=== PATIENT | male | born 1960 | race Two or more races ===

== ENCOUNTER 2017-08-09 18:45 | Inpatient (IN) | payer OTHER, MEDICAID ==
[~2017-08-09] VITALS: Ht 180.3 cm; Wt 99.5 kg
[2017-08-09 19:13] LABS: Basophils # (auto) 0.1 uL; Basophils % (auto) 0.4 % (0.0-2.0); Eosinophils # (auto) 0.3 uL; Eosinophils % (auto) 2.9 % (0.0-7.0); Hematocrit 42.8 % (41.0-53.0); Hemoglobin 14.1 g/dL (13.5-17.5); Lymphocytes # (auto) 2.2 uL; Lymphocytes % (auto) 18.5 % (10.0-50.0); Mean Corpuscular Hgb Conc. 32.9 g/dL (32.0-36.0); Mean Corpuscular Volume 91.2 fL (80.0-100.0); Mean Platelet Volume 8.3 fL (6.9-10.8); Monocytes # (auto) 0.9 uL; Monocytes % (auto) 7.8 % (0.0-12.0); Neutrophils # (auto) 8.3 uL; Neutrophils % (auto) 70.4 % (37.0-80.0); Platelet Count (auto) 243 10^3/uL (140-450); Red Cell Distribution Width 12.9 % (11.8-14.3); White Blood Cell 11.7 10^3/uL (4.4-10.8)
[2017-08-09] MEDS ORDERED: ONDANSETRON HCL 4 MG/2 ML VIAL IV ONE (19:15)
[2017-08-09] MEDS ORDERED: MORPHINE SULF INJ 2 MG/ML SYRINGE 1ML IV PRN ×2 (19:15→22:00)
[2017-08-09 19:34] LABS: INR 0.94 (0.9-1.15); Partial Thromboplastin Time 27.5 sec (22.64-33.71); Prothrombin Time 10.2 sec (9.37-12.3)
[2017-08-09 19:39] LABS: Albumin 3.5 g/dL (3.4-5.0); Anion Gap 10 (5-15); Aspartate Aminotransferase 26 U/L (15-37); BUN/Creatinine Ratio 18.4; Blood Urea Nitrogen 21 mg/dL (7-18); Calcium 8.5 mg/dL (8.5-10.1); Carbon Dioxide 22 mmol/L (21-32); Chloride 106 mmol/L (98-107); GFR African American 84 mL/min; GFR Non-African American 69 mL/min; Glucose 164 mg/dL (74-106); Potassium 3.4 mmol/L (3.5-5.1); Sodium 138 mmol/L (136-145)
[2017-08-09 19:44] LABS: Alkaline Phosphatase 97 U/L (45-117); Bilirubin, Total 0.3 mg/dL (0.2-1.0); Total Protein 7.1 g/dL (6.4-8.2)
[2017-08-09 19:46] LABS: B-Type Natriuretic Peptide 11.36 pg/mL (0-100)
[2017-08-09 19:59] LABS: Temperature: 22.2 C (20.0-25.0)
[2017-08-09] MEDS ORDERED: IOHEXOL 350 MG/ML 100ML IJ ONE (21:27)
[2017-08-09] MEDS ORDERED: HYDROcodone-ACET 5/325MG TAB PO PRN (22:00)
[2017-08-09] MEDS ORDERED: ACETAMINOPHEN 325 MG TAB PO PRN (22:00)
[2017-08-09] MEDS ORDERED: DEXTROSE (50%) 50ML SYRG IV PRN (22:00)
[2017-08-09] MEDS ORDERED: TEMAZEPAM 15 MG CAP PO PRN (22:00)
[2017-08-09] MEDS ORDERED: ONDANSETRON HCL 4 MG/2 ML VIAL IV PRN (22:00)
[2017-08-09] MEDS ORDERED: NITROGLYCERIN 0.4 MG SL TAB SL PRN (22:00)
[2017-08-09] MEDS: METOPROLOL TARTRATE 25 MG TAB PO SCH (22:30)
[2017-08-09] MEDS: FAMOTIDINE 20 MG TAB PO SCH (22:30)
[2017-08-10] MEDS: ACCU-CHEK COMFORT CURVE STRIP VI SCH ×5 (00:10→23:42)
[2017-08-10 02:37] VITALS: BP 119/74
[2017-08-10 05:48] VITALS: BP 112/70
[2017-08-10] MEDS: InsuLIN REG 1unit/0.01ml Soln (100units/ml) SC SCH ×5 (05:59→23:42)
[2017-08-10 08:01] LABS: Basophils # (auto) 0.1 uL; Basophils % (auto) 0.7 % (0.0-2.0); Eosinophils # (auto) 0.5 uL; Eosinophils % (auto) 6.3 % (0.0-7.0); Hematocrit 38.9 % (41.0-53.0); Hemoglobin 13.2 g/dL (13.5-17.5); Lymphocytes # (auto) 2.3 uL; Lymphocytes % (auto) 31.3 % (10.0-50.0); Mean Corpuscular Hemoglobin 30.7 pg (28.0-32.0); Mean Corpuscular Hgb Conc. 33.8 g/dL (32.0-36.0); Mean Corpuscular Volume 90.7 fL (80.0-100.0); Mean Platelet Volume 8.3 fL (6.9-10.8); Monocytes # (auto) 0.7 uL; Monocytes % (auto) 9.5 % (0.0-12.0); Neutrophils # (auto) 3.9 uL; Neutrophils % (auto) 52.2 % (37.0-80.0); Platelet Count (auto) 233 10^3/uL (140-450); White Blood Cell 7.4 10^3/uL (4.4-10.8)
[2017-08-10 08:47] LABS: Albumin 3.4 g/dL (3.4-5.0); BUN/Creatinine Ratio 25.6; Bilirubin, Total 0.4 mg/dL (0.2-1.0); Calcium 8.4 mg/dL (8.5-10.1); Potassium 4.1 mmol/L (3.5-5.1); Total Protein 6.2 g/dL (6.4-8.2)
[2017-08-10 09:00] VITALS: BP 113/68
[2017-08-10] MEDS: FAMOTIDINE 20 MG TAB PO SCH ×2 (09:46→21:43)
[2017-08-10] MEDS: METOPROLOL TARTRATE 25 MG TAB PO SCH ×2 (09:47→17:38)
[2017-08-10] MEDS: ENOXAPARIN SOD 40 MG/0.4 ML SYRINGE SC SCH (09:47)
[2017-08-10] MEDS ORDERED: ASPirin 81 mg TAB PO SCH (10:00)
[2017-08-10 12:13] VITALS: BP 139/86
[2017-08-10 17:00] VITALS: BP 140/93
[2017-08-10] MEDS ORDERED: METF-371 PO (19:02)
[2017-08-10] MEDS ORDERED: TAM04C PO (19:03)
[2017-08-10 22:00] VITALS: BP 118/79
[2017-08-11 00:19] LABS: Urine RBC None Seen /hpf (0 - 3)
[2017-08-11 00:38] LABS: Urine Bilirubin Negative (Negative); Urine Blood Negative /uL (Negative); Urine Color Yellow (Yellow); Urine Glucose Normal (Normal); Urine Ketone Negative (Negative); Urine Nitrite Negative (Negative); Urine Squamous Epithelial Cell FEW /hpf (<5); Urine Urobilinogen Normal (Negative); Urine pH 5.5 (5.0-8.0)
[2017-08-11 05:06] VITALS: BP 123/75
[2017-08-11] MEDS: InsuLIN REG 1unit/0.01ml Soln (100units/ml) SC SCH ×3 (06:00→18:59)
[2017-08-11] MEDS: ACCU-CHEK COMFORT CURVE STRIP VI SCH ×3 (06:24→18:59)
[2017-08-11] MEDS ORDERED: IODIXANOL 320MG/ML 100ML BTL IV ONE (08:23)
[2017-08-11] MEDS ORDERED: LIDOCAINE 2%HCL (LOCAL ANESTH.) INJ 20ML MDV ONE (08:23)
[2017-08-11 09:08] VITALS: BP 127/83
[2017-08-11] MEDS ORDERED: ANGIOMAX 250 MG VIAL IV ONE (10:40)
[2017-08-11] MEDS ORDERED: fentaNYL CITRATE 100 MCG/2 ML VL ONE (10:40)
[2017-08-11] MEDS ORDERED: MIDAZOLAM HCL 1MG/1ML-2 ML VIAL ONE (10:41)
[2017-08-11] MEDS ORDERED: VERAPAMIL 2.5MG/ML INJ 2ML VIAL IV ONE (10:41)
[2017-08-11] MEDS ORDERED: SODIUM CHL 0.9% 0 ML ONE (10:41)
[2017-08-11] MEDS ORDERED: SODIUM CHL 0.9% 100 ML ONE (10:42)
[2017-08-11] MEDS ORDERED: NITROGLYCERIN 5MG/ML 10ML VIAL IV ONE (10:42)
[2017-08-11] MEDS ORDERED: HEPARIN SODIUM (PORCINE) 5000 UNITS/ML 1ML VIAL ONE (11:14)
[2017-08-11] MEDS: ENOXAPARIN SOD 40 MG/0.4 ML SYRINGE SC SCH (13:52)
[2017-08-11] MEDS: FAMOTIDINE 20 MG TAB PO SCH (13:57)
[2017-08-11] MEDS: METOPROLOL TARTRATE 25 MG TAB PO SCH (13:58)
[2017-08-11 17:00] VITALS: BP 129/81
[2017-08-11 18:00] VITALS: BP 133/80
[2017-08-12] MEDS ORDERED: ASPirin 81 mg TAB PO SCH (10:00)
== END 2017-08-11 18:50 | disposition home or self-care (01) | DRG 287 ==
LOC: EDBD 18:45 → ER 18:45 → TELE 18:46 → TELE-WESTW 08-10 02:00
PROVIDERS: ADMIT Family Medicine; ATTEND Internal Medicine
PROC: 4A023N7 Measurement of Cardiac Sampling and Pressure, Left Heart, Percutaneous Approach (ICD-10-PCS; principal; 2017-08-11)
PROC: B2111ZZ Fluoroscopy of Multiple Coronary Arteries using Low Osmolar Contrast (ICD-10-PCS; 2017-08-11)
DX: R07.89 Other chest pain (principal); I20.0 Unstable angina; J98.11 Atelectasis; E11.9 Type 2 diabetes mellitus without complications; E78.5 Hyperlipidemia, unspecified; F17.210 Nicotine dependence, cigarettes, uncomplicated; I10 Essential (primary) hypertension; E66.9 Obesity, unspecified; Z83.3 Family history of diabetes mellitus; Z82.49 Family history of ischemic heart disease and other diseases of the circulatory system; Z68.30 Body mass index [BMI] 30.0-30.9, adult
CPT/HCPCS: 36415; 71010; 71260; 78452; 80053; 81001; 82962; 83735; 83880; 84443; 84484; 85025; 85379; 85610; 85730; 86850; 86900; 86901; 93017; 93306; 93458; 94761; 96374; 96375; J1815; J2250; J2405; J3490; Q9967